=== PATIENT | female | born 1970 | race American Indian/Alaskan Native ===

== ENCOUNTER 2017-02-07 16:06 | Emergency (ER) | payer OTHER ==
--- NOTE | 2017-02-07 17:24 | Emergency Department Report ---
HPI - General Chief Complaint: Arrhythmia/Palpitations Time Seen by Provider: 02/07/17 16:57 - HPI HPI: This is a 46-year-old female presents to the emergency department via EMS with complaint of some palpitations and shortness of breath that occurred while she was [facility] a community center of [facility] earlier today. She conducting the bathroom and felt like her heart rate was racing. She was wearing a family member's apple watch and if accurate it said that her heart rate was about 200. The patient had EMS called and was checked out as found to have high blood sugar but a more reasonable heart rate. She decided that she would rather be driven to the hospital by her family. On the way she once again began having the palpitations and worsening shortness of breath so they pulled over and called EMS once again. She has a past medical history of diabetes mellitus on both pills and insulin as well as hypertension. She says she has been noncompliant recently with her medication. Her primary care physician is a Dr. Tovar. She is a former smoker. She had a 5 [address] car ride for a short trip about one week ago. No sick contacts at home. She denies any illicit drug use. ED Past Medical Hx - Past Medical History Hx Hypertension: Yes Hx Diabetes: Yes - Social History Smoking Status: Former Smoker ED Review of Systems ROS: Stated complaint: PALPATATION/VONDA Other details as noted in HPI Comment: All other systems reviewed and negative Constitutional: denies: chills, fever Eyes: denies: eye pain, eye discharge, vision change ENT: denies: ear pain, throat pain Respiratory: shortness of breath. denies: cough Cardiovascular: palpitations. denies: chest pain Gastrointestinal: denies: abdominal pain, nausea, diarrhea Genitourinary: denies: urgency, dysuria, discharge Musculoskeletal: denies: back pain, joint swelling, arthralgia Skin: denies: rash, lesions Neurological: denies: headache, weakness, paresthesias Physical Exam - Physical Exam Vital Signs: Vital Signs 02/07/17 02/07/17 02/07/17 16:28 16:58 17:03 Temperature 98.1 F Pulse Rate 101 H Respiratory 18 20 20 Rate Blood Pressure 140/90 Blood Pressure 123/78 [Left] O2 Sat by Pulse 100 Oximetry Physical Exam: GENERAL: The patient is well-developed well-nourished. HENT: Normocephalic. Atraumatic. Patient has moist mucous membranes. EYES: Extraocular motions are intact. Pupils equal reactive to light bilaterally. NECK: Supple. Trachea is midline. CHEST/LUNGS: Clear to auscultation. There is no respiratory distress noted. HEART/CARDIOVASCULAR: Regular. There is no tachycardia. There is no gallop rub or murmur. ABDOMEN: Abdomen is soft, nontender. Patient has normal bowel sounds. There is no abdominal distention. Obese habitus. SKIN: Skin is warm and dry. NEURO: The patient is awake, alert, and oriented. The patient is cooperative. The patient has no focal neurologic deficits. The patient has normal speech. MUSCULOSKELETAL: There is no tenderness or deformity. There is no limitation range of motion. There is no evidence of acute injury. ED Course Vital Signs 02/07/17 02/07/17 02/07/17 16:28 16:58 17:03 Temperature 98.1 F Pulse Rate 101 H Respiratory 18 20 20 Rate Blood Pressure 140/90 Blood Pressure 123/78 [Left] O2 Sat by Pulse 100 Oximetry ED Medical Decision Making - Lab Data Result diagrams: 02/07/17 17:07 02/07/17 17:07 - EKG Data -: EKG Interpreted by Me EKG shows normal: sinus rhythm, axis, intervals, QRS complexes (low-voltage), ST -T waves (nonspecific ST-T waves) Rate: tachycardia (107 bpm) - EKG Data When compared to previous EKG there are: previous EKG unavailable Interpretation: other (sinus tachycardia, low voltage QRS, nonspecific ST-T waves) - Radiology Data Radiology results: image reviewed interpreted by me: Chest x-ray does not show any acute process. There are no pleural effusions, obvious pneumonia and there is no pneumothorax. - Medical Decision Making 46-year-old female presents after she had some palpitations, tachycardia and shortness of breath. Symptoms have pretty much resolved by the time she has gotten to the emergency department. EKG showed mild sinus tachycardia but otherwise no signs of ST elevation [place], ischemia or dysrhythmia. Labs have been mostly unremarkable including negative troponins 2, negative d-dimer and a normal thyroid function. The only abnormality was hypoglycemia and the patient admits to some noncompliance with her diabetes medications and dietary control. She does not have any significantly elevated anion gap. Low suspicion for diabetic ketoacidosis. She was given some subcutaneous insulin that will bring her down into the 200s. Her vital signs were stable throughout her ED course. There have been no further episodes of any significant tachycardia or any return of her symptoms of palpitations or shortness of breath. For these reasons she appears safe for discharge home at this time. We discussed dietary changes for her diabetes, medication compliance and follow-up with primary care physician. She has also been given a referral for cardiology regarding the palpitations. She will return to the ER for any worsening of her symptoms or any acute distress. - Differential Diagnosis DKA, hyperthyroidism, PE, dysrhythmia Critical Care Time: No Critical care attestation.: If time is entered above; I have spent that time in minutes in the direct care of this critically ill patient, excluding procedure time. ED Disposition Clinical Impression: Palpitations, Hyperglycemia, Shortness of breath Disposition: TO HOME OR SELFCARE Is pt being admited?: No Condition: Stable Instructions: Palpitations (ED), Dyspnea (ED), Diabetic Hyperglycemia (ED) Additional Instructions: Please follow-up with your primary care doctor in the next few days. Return to the emergency Department with any worsening of your symptoms or any acute distress. Try and stay away from foods are high in sugar, starches and carbohydrates to help with your diabetes. Try and keep a blood sugar log. I have given you a referral for a local harbor pilot, Dr. Mcdaniels, in case you would like to follow-up regarding her palpitations and shortness of breath. Referrals: PRIMARY CARE, [Referring] - DAYDAY YIP MD [Staff Physician] - 3-5 Days Time of Disposition: 19:51
[2017-02-07 17:27] LABS: Basophils % (Auto) 1.2 % (0.0-1.8); Hematocrit 35.7 % (30.3-42.9); Hemoglobin 11.5 gm/dl (10.1-14.3); Mean Corpuscular HGB Conc 32 % (30-34); Mean Corpuscular Volume 78 fl (79-97); Platelet Count 375 K/mm3 (140-440); Red Blood Count 4.59 M/mm3 (3.65-5.03); Red Cell Distribution Width 16.1 % (13.2-15.2); White Blood Count 9.2 K/mm3 (4.5-11.0)
[2017-02-07 17:28] LABS: Mean Corpuscular Hemoglobin 25 pg (28-32)
[2017-02-07 17:42] LABS: Anion Gap 20 mmol/L; BUN/Creatinine Ratio 18; Blood Urea Nitrogen 9 mg/dL (7-17); Calcium 9.2 mg/dL (8.4-10.2); Carbon Dioxide 23 mmol/L (22-30); Chloride 96.5 mmol/L (98-107); Glucose 302 mg/dL (65-100); Potassium 3.8 mmol/L (3.6-5.0); Sodium 136 mmol/L (137-145)
--- NOTE | 2017-02-07 20:16 | XRay Report ---
FINAL REPORT EXAM: XR CHEST ROUTINE 2V TECHNIQUE: upright single view chest PRIORS: None. FINDINGS: Cardiac and mediastinal contours are unremarkable. No focal pulmonary infiltrate is identified. No pleural fluid collection seen. Pulmonary vasculature is unremarkable. IMPRESSION: Negative single-view chest HISTORY: SOB
[2017-02-07 20:18] VITALS: BP 137/76
== END 2017-02-07 20:10 | disposition home or self-care (01) ==
LOC: ED 16:06
DX: R00.2 Palpitations (principal); R06.02 Shortness of breath; E11.65 Type 2 diabetes mellitus with hyperglycemia; I10 Essential (primary) hypertension; Z87.891 Personal history of nicotine dependence
CPT/HCPCS: 36415; 71020; 80048; 82962; 84443; 84484; 84703; 85025; 85379; 93005; 93010; 96372; J1815